=== PATIENT | male | born 1970 | race Caucasian/White ===

== ENCOUNTER 2018-08-22 22:34 | Inpatient (IN) | payer SELFPAY, OTHER | END 2018-08-29 19:10 | disposition home or self-care (01) | LOC: EDH 22:34 → EDHIP 22:35 → 3BH 08-23 02:04 ==

== ENCOUNTER → 2019-05-14 | Outpatient (CLI) | payer OTHER ==
[~2019-05-14] MED LIST: CARV25TA PO; FURO40TA7 PO; LEVO500T2 PO; LISI40TA4 PO; SPIR25TA PO
== END | disposition home or self-care (01) ==
LOC: OIH 09:33
PROVIDERS: ATTEND Family Medicine
DX: M17.11 Unilateral primary osteoarthritis, right knee (principal)
CPT/HCPCS: 73560

== ENCOUNTER 2019-06-20 08:52 | Emergency (ER) | payer OTHER ==
[2019-06-20 09:18] LABS: BASOPHILS % (AUTO) 0.5 % (0.0-5.0); HEMATOCRIT 39.1 % (42-54); LYMPHOCYTES % (AUTO) 19.2 % (21.0-51.0); MEAN CORPUSCULAR HEMOGLOBIN 30.8 pg (27.0-33.0); MEAN CORPUSCULAR VOLUME 87.9 fL (79-99); MONOCYTES % (AUTO) 4.9 % (3.0-13.0); NEUTROPHILS % (AUTO) 72.1 % (40.0-77.0); PLATELET COUNT (AUTO) 203 K/uL (130-400); RED BLOOD CELL COUNT(AUTO) 4.45 MIL/uL (4.50-6.20); WHITE BLOOD COUNT (AUTO) 9.1 K/uL (4.8-10.8)
[2019-06-20] MEDS ORDERED: METHYLPREDNISOLONE SOD SUCC 125MG/2ML VIAL ONE ×3 (09:20→10:26)
[2019-06-20] MEDS ORDERED: ALBUTEROL INHALER 90MCG/INH IH ONE (09:20)
[2019-06-20 09:24] LABS: POTASSIUM 3.7 mmol/L (3.5-5.1)
[2019-06-20 09:29] LABS: INR 0.95 (0.85-1.15); PARTIAL THROMBOPLASTIN TIME 25.5 SEC (26.3-35.5); PROTHROMBIN TIME 10.3 SEC (9.6-11.6)
[2019-06-20 09:31] LABS: ALBUMIN 3.6 g/dL (3.5-5.0); BILIRUBIN,TOTAL 0.5 mg/dL (0.2-1.0); TOTAL PROTEIN, SERUM 6.5 g/dL (6.0-8.3)
[2019-06-20] MEDS ORDERED: ASPIRIN 325 MG TABLET ONE (09:34)
[2019-06-20 09:52] LABS: APPEARANCE,URINE Cloudy (CLEAR); BILIRUBIN,URINE Negative (NEGATIVE); COLOR,URINE Yellow (YELLOW); GLUCOSE, URINE (UA) TRACE mg/dL (NEGATIVE); KETONES,URINE Negative (NEGATIVE); LEUKOCYTE ESTERASE ,URINE Trace (NEGATIVE); NITRATE,URINE Positive (NEGATIVE); OCCULT BLOOD,URINE Negative (NEGATIVE); PH,URINE 5.5 (5.0-8.0); PROTEIN,URINE Trace mg/dL (NEGATIVE)
[2019-06-20 10:04] LABS: RBC,URINE None Seen /HPF (0-1)
[2019-06-20 10:05] LABS: BACTERIA,URINE Many /HPF (None Seen); SQUAMOUS EPITHELIAL CELL,UR 0-2 /HPF (0-2)
== END 2019-06-20 11:21 | disposition home or self-care (01) ==
LOC: EDH 08:52
DX: J45.901 Unspecified asthma with (acute) exacerbation (principal); E11.9 Type 2 diabetes mellitus without complications; E78.5 Hyperlipidemia, unspecified; Z72.0 Tobacco use
CPT/HCPCS: 36415; 71045; 80053; 81001; 82550; 83880; 84484; 85025; 85610; 85730; 87077; 87088; 87186; 87804 ×2; 87880; 93005; 96374; 99285; J2930; 94640

== ENCOUNTER 2020-03-12 19:59 | Inpatient (IN) | payer SELFPAY ==
[~2020-03-12] VITALS: Ht 175.3 cm; Wt 119.7 kg
[2020-03-12] MEDS ORDERED: SODIUM CHLORIDE 0.9% 1000ML 1,000 ML IV ONE (20:21)
[2020-03-12 20:27] LABS: BASOPHILS % (AUTO) 0.9 % (0.0-5.0); EOSINOPHILS % (AUTO) 1.8 % (0.0-8.0); HEMATOCRIT 46.1 % (42-54); LYMPHOCYTES % (AUTO) 27.7 % (21.0-51.0); MEAN CORPUSCULAR HEMOGLOBIN 28.7 pg (27.0-33.0); MEAN CORPUSCULAR HGB CONC 34.9 g/dL (32.0-36.0); MEAN CORPUSCULAR VOLUME 82.2 fL (79-99); MONOCYTES % (AUTO) 6.1 % (3.0-13.0); NEUTROPHILS % (AUTO) 62.7 % (40.0-77.0); PLATELET COUNT (AUTO) 304 K/uL (130-400); RED BLOOD CELL COUNT(AUTO) 5.61 MIL/uL (4.50-6.20)
[2020-03-12 20:29] LABS: ABG BASE EXCESS 2.1 mmol/L (-2.0-3.0); ABG OXYGEN SATURATION 88.2 % (95.0-99.0); ABG PCO2 48 mmHg (35-48)
[2020-03-12 20:56] LABS: CREATININE 1.5 mg/dL (0.5-1.5); POTASSIUM 3.5 mmol/L (3.5-5.1)
[2020-03-12 20:56] LABS: APPEARANCE,URINE Clear (CLEAR); BILIRUBIN,URINE Negative (NEGATIVE); COLOR,URINE Yellow (YELLOW); GLUCOSE, URINE (UA) >=1000 mg/dL (NEGATIVE); KETONES,URINE Negative (NEGATIVE); LEUKOCYTE ESTERASE ,URINE Negative (NEGATIVE); NITRATE,URINE Negative (NEGATIVE); OCCULT BLOOD,URINE Negative (NEGATIVE); PROTEIN,URINE Negative (NEGATIVE); UROBILINOGEN,URINE 0.2 mg/dL (0.2-1.0)
[2020-03-12 20:57] LABS: ALBUMIN 3.8 g/dL (3.5-5.0); BILIRUBIN,TOTAL 0.5 mg/dL (0.2-1.0); TOTAL PROTEIN, SERUM 7.7 g/dL (6.0-8.3)
[2020-03-12 21:04] LABS: INR 0.95 (0.85-1.15); PROTHROMBIN TIME 10.2 SEC (9.6-11.6)
[2020-03-12 21:04] LABS: AMPHET/METH SCREEN,URINE NEGATIVE (NEGATIVE); BARBITURATE SCREEN, URINE NEGATIVE (NEGATIVE); BENZODIAZEPINES SCREEN,URINE NEGATIVE (NEGATIVE); CANNABINOID SCREEN,URINE NEGATIVE (NEGATIVE); COCAINE SCREEN,URINE NEGATIVE (NEGATIVE); OPIATE SCREEN,URINE NEGATIVE (NEGATIVE); PHENCYCLIDINE SCREEN,URINE NEGATIVE (NEGATIVE)
[2020-03-12 21:05] LABS: PARTIAL THROMBOPLASTIN TIME 22.2 SEC (26.3-35.5)
[2020-03-12 21:12] LABS: AMORPHOUS SEDIMENT,UR Moderate /LPF (None Seen); BACTERIA,URINE Few /HPF (None Seen); MUCUS,URINE Few LPF (None Seen); RBC,URINE 0-1 /HPF (0-1); SQUAMOUS EPITHELIAL CELL,UR Few /HPF (0-2); WBC,URINE 0-1 /HPF (0-1)
[2020-03-12 21:29] LABS: CREATINE KINASE, TOTAL 95 U/L (21-232); MYOGLOBIN 57 ng/mL (10-92)
[2020-03-12] MEDS ORDERED: SODIUM CHLORIDE 0.9% 100 ML IV ONE (21:49)
[2020-03-12] MEDS ORDERED: INSULIN HUMULIN R 100 UNIT/ML 3ML ONE ×2 (21:50→21:56)
[2020-03-12] MEDS ORDERED: ONDANSETRON HCL 4 MG/2 ML VIAL IV PRN (22:15)
[2020-03-12] MEDS ORDERED: INSULIN REGULAR, HUMAN 3ML 100 UNIT in SODIUM CHLORIDE 0.9% 99 ML IV PRN ×2 (22:15)
[2020-03-12] MEDS ORDERED: ACETAMINOPHEN 325 MG TAB PO PRN ×2 (22:15)
[2020-03-12] MEDS ORDERED: SODIUM CHLORIDE 0.9% 1000ML 1,000 ML IV SCH (22:15)
[2020-03-12 22:56] LABS: HEMOGLOBIN A1C 11.2 % (4.0-6.0)
[2020-03-12 23:41] LABS: ALBUMIN 3.6 g/dL (3.5-5.0); MAGNESIUM 2.1 mg/dL (1.80-2.40); PHOSPHORUS 3.5 mg/dL (2.5-4.9); THYROID STIMULATING HORMONE 1.95 uIU/mL (0.36-3.74); TROPONIN I 0.23 ng/mL (0.00-0.06)
[2020-03-13] MEDS ORDERED: IPRATROPIUM/ALBUTEROL SULFATE 3 ML SOLUTION IH SCH
[2020-03-13 02:06] LABS: POTASSIUM 2.9 mmol/L (3.5-5.1)
[2020-03-13] MEDS ORDERED: POTASSIUM CHLORIDE 20MEQ/100ML 100 ML IV ONE ×2 (02:16→04:19)
[2020-03-13] MEDS ORDERED: POTASSIUM CHLORIDE 20 MEQ ERTAB PO SCH (06:30)
[2020-03-13 07:17] LABS: CREATININE 0.9 mg/dL (0.5-1.5); POTASSIUM 3.6 mmol/L (3.5-5.1); TROPONIN I 0.24 ng/mL (0.00-0.06)
[2020-03-13] MEDS: INSULIN LISPRO 100 UNIT/ML 3ML SQ SCH ×6 (07:30→21:00)
[2020-03-13] MEDS: INSULIN GLARGINE 100 UNITS/ML 10 ML VIAL SQ SCH ×2 (07:30→20:53)
[2020-03-13] MEDS ORDERED: INSULIN LISPRO 100 UNIT/ML 3ML SQ SCH (07:30)
[2020-03-13] MEDS: NICOTINE 21 MG/ 24 HR PATCH TD SCH (09:00)
[2020-03-13] MEDS: METOPROLOL TARTRATE 25 MG TAB PO SCH ×2 (09:00→20:39)
[2020-03-13] MEDS: ENOXAPARIN SODIUM 40 MG/0.4 ML SYRINGE SQ SCH (09:00)
[2020-03-13] MEDS: FAMOTIDINE/PF 20 MG/2 ML VIAL IV SCH ×2 (09:00→20:38)
[2020-03-13] MEDS: LISINOPRIL 10 MG TABLET PO SCH (09:00)
[2020-03-13] MEDS: ASPIRIN 325 MG TABLET PO SCH (09:00)
[2020-03-13] MEDS ORDERED: ENOXAPARIN SODIUM 40 MG/0.4 ML SYRINGE SQ ONE (09:28)
[2020-03-13] MEDS ORDERED: LISINOPRIL 5 MG TABLET ONE (09:28)
[2020-03-13] MEDS ORDERED: ASPIRIN 325 MG TABLET ONE (09:28)
[2020-03-13] MEDS ORDERED: METOPROLOL TARTRATE 25 MG TAB ONE (09:29)
[2020-03-13] MEDS ORDERED: FAMOTIDINE/PF 20 MG/2 ML VIAL IV ONE (09:30)
[2020-03-13 10:30] VITALS: BP 164/97
[2020-03-13] MEDS ORDERED: LORAZEPAM 2 MG/ML 1 ML VIAL IVP PRN (11:15)
[2020-03-13] MEDS: LACTATED RINGERS 1000ML 1,000 ML IV SCH (12:02)
[2020-03-13 16:01] VITALS: BP 154/95
[2020-03-13 20:00] VITALS: BP 165/80
[2020-03-13] MEDS: ATORVASTATIN CALCIUM 20 MG TABLET PO SCH (20:38)
[2020-03-14] VITALS (9 sets, daily range): BP systolic 149–202; BP diastolic 77–119
[2020-03-14] MEDS: LACTATED RINGERS 1000ML 1,000 ML IV SCH ×3 (00:55→15:35)
[2020-03-14 04:04] LABS: BASOPHILS % (AUTO) 0.6 % (0.0-5.0); EOSINOPHILS % (AUTO) 2.2 % (0.0-8.0); HEMATOCRIT 39.4 % (42-54); LYMPHOCYTES % (AUTO) 21.4 % (21.0-51.0); MEAN CORPUSCULAR HEMOGLOBIN 28.3 pg (27.0-33.0); MEAN CORPUSCULAR HGB CONC 33.8 g/dL (32.0-36.0); MEAN CORPUSCULAR VOLUME 83.8 fL (79-99); MONOCYTES % (AUTO) 5.6 % (3.0-13.0); NEUTROPHILS % (AUTO) 69.6 % (40.0-77.0); PLATELET COUNT (AUTO) 235 K/uL (130-400); RED CELL DISTRIBUTION WIDTH 12.7 % (11.0-15.5); WHITE BLOOD COUNT (AUTO) 11.3 K/uL (4.8-10.8)
[2020-03-14 04:45] LABS: ALBUMIN 2.7 g/dL (3.5-5.0); BILIRUBIN,TOTAL 1.1 mg/dL (0.2-1.0); CREATININE 0.9 mg/dL (0.5-1.5); POTASSIUM 3.4 mmol/L (3.5-5.1); TOTAL PROTEIN, SERUM 5.7 g/dL (6.0-8.3)
[2020-03-14] MEDS: LISINOPRIL 10 MG TABLET PO SCH ×2 (05:42→20:29)
[2020-03-14] MEDS ORDERED: LABETALOL 20 MG/4 ML DISP.SYRIN IV SCH (07:00)
[2020-03-14] MEDS: INSULIN LISPRO 100 UNIT/ML 3ML SQ SCH ×6 (07:10→20:33)
[2020-03-14] MEDS: ASPIRIN 325 MG TABLET PO SCH (09:00)
[2020-03-14] MEDS ORDERED: ASPIRIN 81MG TAB.CHEW ONE (10:47)
[2020-03-14] MEDS: NICOTINE 21 MG/ 24 HR PATCH TD SCH (10:50)
[2020-03-14] MEDS: FAMOTIDINE/PF 20 MG/2 ML VIAL IV SCH ×2 (10:50→20:30)
[2020-03-14] MEDS: METOPROLOL TARTRATE 25 MG TAB PO SCH (10:50)
[2020-03-14] MEDS: ENOXAPARIN SODIUM 40 MG/0.4 ML SYRINGE SQ SCH (10:51)
[2020-03-14] MEDS: ALBUTEROL INHALER 90MCG/INH IH SCH ×2 (12:00→17:03)
[2020-03-14] MEDS: LABETALOL 20 MG/4 ML DISP.SYRIN IV PRN (12:49)
[2020-03-14] MEDS ORDERED: INSULIN LISPRO 100 UNIT/ML 3ML SQ SCH (17:00)
[2020-03-14] MEDS ORDERED: FURO40TA5 PO (17:28)
[2020-03-14] MEDS ORDERED: SPIR25TA6 PO (17:28)
[2020-03-14] MEDS ORDERED: METO50TA18 PO (17:28)
[2020-03-14] MEDS ORDERED: HYDR25TA PO (17:28)
[2020-03-14] MEDS: ATORVASTATIN CALCIUM 20 MG TABLET PO SCH (20:28)
[2020-03-14] MEDS: METOPROLOL TARTRATE 50 MG TAB PO SCH (20:29)
[2020-03-14] MEDS: INSULIN GLARGINE 100 UNITS/ML 10 ML VIAL SQ SCH (20:32)
[2020-03-15] VITALS (7 sets, daily range): BP systolic 129–201; BP diastolic 94–110
[2020-03-15 04:01] LABS: BASOPHILS % (AUTO) 0.5 % (0.0-5.0); EOSINOPHILS % (AUTO) 1.9 % (0.0-8.0); HEMATOCRIT 39.3 % (42-54); LYMPHOCYTES % (AUTO) 15.8 % (21.0-51.0); MEAN CORPUSCULAR HEMOGLOBIN 28.4 pg (27.0-33.0); MEAN CORPUSCULAR HGB CONC 33.6 g/dL (32.0-36.0); MEAN CORPUSCULAR VOLUME 84.7 fL (79-99); MONOCYTES % (AUTO) 5.7 % (3.0-13.0); NEUTROPHILS % (AUTO) 75.6 % (40.0-77.0); PLATELET COUNT (AUTO) 235 K/uL (130-400); RED BLOOD CELL COUNT(AUTO) 4.64 MIL/uL (4.50-6.20); RED CELL DISTRIBUTION WIDTH 12.9 % (11.0-15.5); WHITE BLOOD COUNT (AUTO) 10.2 K/uL (4.8-10.8)
[2020-03-15 04:18] LABS: ALBUMIN 2.9 g/dL (3.5-5.0); BILIRUBIN,TOTAL 0.9 mg/dL (0.2-1.0); CREATININE 0.8 mg/dL (0.5-1.5)
[2020-03-15] MEDS: INSULIN LISPRO 100 UNIT/ML 3ML SQ SCH ×6 (06:04→17:06)
[2020-03-15] MEDS: INSULIN GLARGINE 100 UNITS/ML 10 ML VIAL SQ SCH (06:16)
[2020-03-15] MEDS: LACTATED RINGERS 1000ML 1,000 ML IV SCH (07:01)
[2020-03-15] MEDS ORDERED: POTASSIUM CHLORIDE 20 MEQ ERTAB PO SCH (07:15)
[2020-03-15] MEDS ORDERED: INSULIN GLARGINE 100 UNITS/ML 10 ML VIAL SQ SCH (07:30)
[2020-03-15] MEDS ORDERED: ASPIRIN 81MG TAB.CHEW ONE (07:56)
[2020-03-15] MEDS: NICOTINE 21 MG/ 24 HR PATCH TD SCH (08:02)
[2020-03-15] MEDS: ENOXAPARIN SODIUM 40 MG/0.4 ML SYRINGE SQ SCH (08:03)
[2020-03-15] MEDS: METOPROLOL TARTRATE 50 MG TAB PO SCH (08:04)
[2020-03-15] MEDS: FAMOTIDINE/PF 20 MG/2 ML VIAL IV SCH (08:04)
[2020-03-15] MEDS: LISINOPRIL 10 MG TABLET PO SCH (08:04)
[2020-03-15] MEDS: LABETALOL 20 MG/4 ML DISP.SYRIN IV PRN ×2 (08:26→16:20)
[2020-03-15] MEDS ORDERED: LISI10TA7 PO (08:40)
[2020-03-15] MEDS ORDERED: METO50 PO (08:40)
[2020-03-15] MEDS ORDERED: PIOG45TA4 PO (08:40)
[2020-03-15] MEDS ORDERED: METF-444 PO (08:40)
[2020-03-15] MEDS ORDERED: ATOR20TA65 PO (08:40)
[2020-03-15] MEDS: ASPIRIN 325 MG TABLET PO SCH (11:44)
[2020-03-15] MEDS ORDERED: INSU100I35 SQ ×2 (14:48)
== END 2020-03-15 19:30 | disposition home or self-care (01) | DRG 638 ==
LOC: EDH 19:59 → EDHIP 20:00 → 4CH 03-13 09:24
PROVIDERS: ADMIT Internal Medicine; ATTEND Internal Medicine
DX: E11.00 Type 2 diabetes mellitus with hyperosmolarity without nonketotic hyperglycemic-hyperosmolar coma (NKHHC) (principal); E87.1 Hypo-osmolality and hyponatremia; E87.0 Hyperosmolality and hypernatremia; I69.351 Hemiplegia and hemiparesis following cerebral infarction affecting right dominant side; J44.1 Chronic obstructive pulmonary disease with (acute) exacerbation; E86.1 Hypovolemia; E86.0 Dehydration; G40.909 Epilepsy, unspecified, not intractable, without status epilepticus; I10 Essential (primary) hypertension; E78.5 Hyperlipidemia, unspecified; F17.210 Nicotine dependence, cigarettes, uncomplicated; I25.10 Atherosclerotic heart disease of native coronary artery without angina pectoris; Z20.822 Contact with and (suspected) exposure to COVID-19; I25.2 Old myocardial infarction; Z79.4 Long term (current) use of insulin; Z91.19 Patient's noncompliance with other medical treatment and regimen
CPT/HCPCS: 36415; 36600; 70450; 71045; 80048; 80053; 80061; 80305; 81001; 82010; 82040; 82550; 82803; 82948; 83036; 83605; 83690; 83735; 83874; 83880; 84100; 84145; 84443; 84484; 85025; 85378; 85610; 85730; 86900; 86901; 87040; 87088; 87426; 92610; 93005; 94664; G0378; J1650; J1815; J3480; J3490; J7030; J7120; U0003

== ENCOUNTER 2020-04-04 15:25 | Inpatient (IN) | payer SELFPAY ==
[~2020-04-04] VITALS: Ht 175.3 cm; Wt 119.8 kg
[~2020-04-04 15:25] MED LIST changes: +ATOR20TA65 PO; -CARV25TA PO; +FURO40TA5 PO; -FURO40TA7 PO; +HYDR25TA PO; +INSU100I35 SQ; -LEVO500T2 PO; +LISI10TA24 PO; -LISI40TA4 PO; +METF-444 PO; +METO50 PO; +METO50TA18 PO; +PIOG45TA4 PO; -SPIR25TA PO; +SPIR25TA6 PO
[2020-04-04 16:01] LABS: BASOPHILS % (AUTO) 0.9 % (0.0-5.0); EOSINOPHILS % (AUTO) 2.5 % (0.0-8.0); HEMATOCRIT 42.6 % (42-54); LYMPHOCYTES % (AUTO) 21.7 % (21.0-51.0); MEAN CORPUSCULAR HEMOGLOBIN 28.5 pg (27.0-33.0); MEAN CORPUSCULAR HGB CONC 33.8 g/dL (32.0-36.0); MEAN CORPUSCULAR VOLUME 84.4 fL (79-99); MONOCYTES % (AUTO) 7.4 % (3.0-13.0); NEUTROPHILS % (AUTO) 67.4 % (40.0-77.0); PLATELET COUNT (AUTO) 170 K/uL (130-400); RED BLOOD CELL COUNT(AUTO) 5.05 MIL/uL (4.50-6.20); WHITE BLOOD COUNT (AUTO) 7.9 K/uL (4.8-10.8)
[2020-04-04] MEDS ORDERED: LABETALOL 20MG SYG IV ONE ×2 (16:02→23:02)
[2020-04-04 16:10] LABS: INR 0.99 (0.85-1.15); PROTHROMBIN TIME 10.8 SEC (9.6-11.6)
[2020-04-04 16:14] LABS: PARTIAL THROMBOPLASTIN TIME 20.2 SEC (26.3-35.5)
[2020-04-04 16:18] LABS: ALBUMIN 3.6 g/dL (3.5-5.0); BILIRUBIN,TOTAL 0.8 mg/dL (0.2-1.0); TOTAL PROTEIN, SERUM 7.2 g/dL (6.0-8.3)
[2020-04-04 17:49] LABS: APPEARANCE,URINE Cloudy (CLEAR); BILIRUBIN,URINE Negative (NEGATIVE); COLOR,URINE Yellow (YELLOW); GLUCOSE, URINE (UA) TRACE mg/dL (NEGATIVE); KETONES,URINE Trace mg/dL (NEGATIVE); LEUKOCYTE ESTERASE ,URINE Trace (NEGATIVE); NITRATE,URINE Positive (NEGATIVE); OCCULT BLOOD,URINE Negative (NEGATIVE); PH,URINE 6.5 (5.0-8.0); PROTEIN,URINE POS 1+ mg/dL (NEGATIVE)
[2020-04-04 17:57] LABS: AMPHET/METH SCREEN,URINE NEGATIVE (NEGATIVE); BARBITURATE SCREEN, URINE NEGATIVE (NEGATIVE); BENZODIAZEPINES SCREEN,URINE NEGATIVE (NEGATIVE); CANNABINOID SCREEN,URINE NEGATIVE (NEGATIVE); COCAINE SCREEN,URINE NEGATIVE (NEGATIVE); OPIATE SCREEN,URINE NEGATIVE (NEGATIVE); PHENCYCLIDINE SCREEN,URINE NEGATIVE (NEGATIVE)
[2020-04-04 17:59] LABS: BACTERIA,URINE Many /HPF (None Seen); MUCUS,URINE Few LPF (None Seen); SQUAMOUS EPITHELIAL CELL,UR Few /HPF (0-2)
[2020-04-04] MEDS ORDERED: NICARDIPINE HCL 100MG/ 0.9% NACL 100ML IV SCH (19:15)
[2020-04-04] MEDS ORDERED: ACETAMINOPHEN 650MG ER TAB PO PRN ×2 (19:15)
[2020-04-04] MEDS ORDERED: LABETALOL 20MG SYG IV PRN (19:15)
[2020-04-04] MEDS: ZOSYN 3.375GM+NS 50ML 50 ML IV SCH (19:30)
[2020-04-04] MEDS ORDERED: KCL 20 MEQ ERTAB PO SCH (19:30)
[2020-04-04] MEDS ORDERED: ASPIRIN 81MG CHEW TAB PO SCH (20:30)
[2020-04-04] MEDS ORDERED: CLOPIDOGREL 75MG TAB PO SCH (20:30)
[2020-04-04] MEDS: ATORVASTATIN 20 MG TABLET PO SCH (21:00)
[2020-04-04] MEDS: METOPROLOL TARTRATE 25 MG TAB PO SCH (21:00)
[2020-04-04] MEDS: LISINOPRIL 10 MG TABLET PO SCH (21:00)
[2020-04-04] MEDS ORDERED: ASPIRIN 81MG CHEW TAB ONE (23:00)
[2020-04-04] MEDS ORDERED: POTASSIUM CHLORIDE 10% ELIXIR 20 MEQ/15 ML UDCUP ONE (23:00)
[2020-04-04] MEDS ORDERED: LISINOPRIL 5 MG TABLET ONE (23:01)
[2020-04-04] MEDS ORDERED: ATORVASTATIN 40 MG TABLET ONE (23:01)
[2020-04-04] MEDS ORDERED: CLOPIDOGREL 75MG TAB ONE (23:01)
[2020-04-04] MEDS ORDERED: METOPROLOL TARTRATE 25 MG TAB ONE (23:02)
[2020-04-04] MEDS ORDERED: ZOSYN 3.375GM+NS 50ML 50 ML IV ONE (23:02)
[2020-04-05 06:41] LABS: HEMATOCRIT 38.6 % (42-54); MEAN CORPUSCULAR HEMOGLOBIN 28.6 pg (27.0-33.0); MEAN CORPUSCULAR HGB CONC 33.9 g/dL (32.0-36.0); MEAN CORPUSCULAR VOLUME 84.3 fL (79-99); RED BLOOD CELL COUNT(AUTO) 4.58 MIL/uL (4.50-6.20); RED CELL DISTRIBUTION WIDTH 13.2 % (11.0-15.5); WHITE BLOOD COUNT (AUTO) 8.9 K/uL (4.8-10.8)
[2020-04-05 06:55] LABS: HEMOGLOBIN A1C 11.7 % (4.0-6.0)
[2020-04-05 07:01] LABS: INR 1.07 (0.85-1.15); PROTHROMBIN TIME 11.6 SEC (9.6-11.6)
[2020-04-05 07:13] LABS: ALBUMIN 3.3 g/dL (3.5-5.0); BILIRUBIN,TOTAL 1.4 mg/dL (0.2-1.0); CREATININE 0.8 mg/dL (0.5-1.5); THYROID STIMULATING HORMONE 2.53 uIU/mL (0.36-3.74); TOTAL PROTEIN, SERUM 6.5 g/dL (6.0-8.3); TROPONIN I 0.04 ng/mL (0.00-0.06)
[2020-04-05 07:14] LABS: POTASSIUM 2.5 mmol/L (3.5-5.1)
[2020-04-05] MEDS ORDERED: GADODIAMIDE 10 MMOL/20 ML VIAL IV ONE (08:08)
[2020-04-05] MEDS: METOPROLOL TARTRATE 25 MG TAB PO SCH ×2 (09:00→20:47)
[2020-04-05] MEDS: LISINOPRIL 10 MG TABLET PO SCH ×2 (09:00→20:46)
[2020-04-05] MEDS: ASPIRIN 81MG CHEW TAB PO SCH (09:00)
[2020-04-05] MEDS: CLOPIDOGREL 75MG TAB PO SCH (09:00)
[2020-04-05] MEDS: FAMOTIDINE 20MG VIAL IV SCH ×2 (09:00→20:47)
[2020-04-05] MEDS ORDERED: FAMOTIDINE 20MG VIAL IV ONE (09:33)
[2020-04-05] MEDS: ZOSYN 3.375GM+NS 50ML 50 ML IV SCH ×2 (11:30→20:47)
[2020-04-05] MEDS ORDERED: ASPIRIN 81MG CHEW TAB ONE (11:52)
[2020-04-05] MEDS ORDERED: CLOPIDOGREL 75MG TAB ONE (11:52)
[2020-04-05] MEDS ORDERED: METOPROLOL TARTRATE 25 MG TAB ONE (11:53)
[2020-04-05] MEDS ORDERED: ZOSYN 3.375GM+NS 50ML 50 ML IV ONE (11:53)
[2020-04-05] MEDS ORDERED: POTASSIUM CHLORIDE 10% ELIXIR 20 MEQ/15 ML UDCUP ONE (13:28)
[2020-04-05] MEDS ORDERED: INSULIN HUMULIN R 100 UNIT/ML 3ML ONE (13:29)
[2020-04-05 17:52] VITALS: BP 185/116
[2020-04-05] MEDS: INSULIN HUMULIN R 100 UNIT/ML 3ML SQ SCH ×3 (18:00→20:53)
[2020-04-05] MEDS: NICARDIPINE 25MG INJ 50 MG in 0.9% NACL 250ML 230 ML IV SCH (18:30)
[2020-04-05] MEDS: LIDOCAINE HCL-MPF 1% 2ML VIAL IV PRN (18:30)
[2020-04-05 20:21] VITALS: BP 164/88
[2020-04-05] MEDS: ATORVASTATIN 20 MG TABLET PO SCH (20:46)
[2020-04-06 00:20] VITALS: BP 168/96
[2020-04-06] MEDS: ZOSYN 3.375GM+NS 50ML 50 ML IV SCH ×3 (04:30→20:58)
[2020-04-06 05:30] VITALS: BP 176/88
[2020-04-06] MEDS: INSULIN HUMULIN R 100 UNIT/ML 3ML SQ SCH ×3 (06:00→18:51)
[2020-04-06 06:26] LABS: ALBUMIN 3.4 g/dL (3.5-5.0); BILIRUBIN,TOTAL 1.3 mg/dL (0.2-1.0); CREATININE 0.9 mg/dL (0.5-1.5); TOTAL PROTEIN, SERUM 6.7 g/dL (6.0-8.3)
[2020-04-06 06:32] LABS: POTASSIUM 2.9 mmol/L (3.5-5.1)
[2020-04-06] MEDS: KCL 20 MEQ ERTAB PO PRN ×2 (06:43→08:19)
[2020-04-06 06:45] LABS: BASOPHILS % (AUTO) 0.8 % (0.0-5.0); EOSINOPHILS % (AUTO) 3.8 % (0.0-8.0); HEMATOCRIT 38.7 % (42-54); LYMPHOCYTES % (AUTO) 28.7 % (21.0-51.0); MEAN CORPUSCULAR HGB CONC 34.1 g/dL (32.0-36.0); MEAN CORPUSCULAR VOLUME 85.1 fL (79-99); MONOCYTES % (AUTO) 7.8 % (3.0-13.0); NEUTROPHILS % (AUTO) 58.8 % (40.0-77.0); PLATELET COUNT (AUTO) 213 K/uL (130-400); RED BLOOD CELL COUNT(AUTO) 4.55 MIL/uL (4.50-6.20); RED CELL DISTRIBUTION WIDTH 13.2 % (11.0-15.5); WHITE BLOOD COUNT (AUTO) 7.9 K/uL (4.8-10.8)
[2020-04-06 08:00] VITALS: BP 204/93
[2020-04-06] MEDS: FAMOTIDINE 20MG VIAL IV SCH ×2 (08:18→20:58)
[2020-04-06] MEDS: ASPIRIN 81MG CHEW TAB PO SCH (08:19)
[2020-04-06] MEDS: LISINOPRIL 10 MG TABLET PO SCH ×2 (08:19→20:58)
[2020-04-06] MEDS: CLOPIDOGREL 75MG TAB PO SCH (08:20)
[2020-04-06] MEDS: METOPROLOL TARTRATE 25 MG TAB PO SCH ×2 (08:20→20:58)
[2020-04-06 14:02] VITALS: BP_SYST 130; BP_SYST 185; BP_DIAS 66; BP_DIAS 85
[2020-04-06 18:28] VITALS: BP 187/105
[2020-04-06 20:15] VITALS: BP 184/93
[2020-04-06] MEDS: ATORVASTATIN 20 MG TABLET PO SCH (20:58)
[2020-04-06 22:10] LABS: EOSINOPHILS % (AUTO) 3.7 % (0.0-8.0); HEMATOCRIT 40.4 % (42-54); MEAN CORPUSCULAR HEMOGLOBIN 28.7 pg (27.0-33.0); MEAN CORPUSCULAR HGB CONC 33.4 g/dL (32.0-36.0); MONOCYTES % (AUTO) 7.7 % (3.0-13.0); NEUTROPHILS % (AUTO) 59.2 % (40.0-77.0); PLATELET COUNT (AUTO) 231 K/uL (130-400); RED CELL DISTRIBUTION WIDTH 13.2 % (11.0-15.5); WHITE BLOOD COUNT (AUTO) 8.1 K/uL (4.8-10.8)
[2020-04-07] VITALS (14 sets, daily range): BP systolic 125–187; BP diastolic 75–119
[2020-04-07] MEDS ORDERED: LABETALOL 20MG VIAL IV PRN (04:45)
[2020-04-07] MEDS: ZOSYN 3.375GM+NS 50ML 50 ML IV SCH ×3 (04:50→21:11)
[2020-04-07 05:21] LABS: BASOPHILS % (AUTO) 0.7 % (0.0-5.0); MEAN CORPUSCULAR HEMOGLOBIN 28.7 pg (27.0-33.0); MEAN CORPUSCULAR HGB CONC 33.7 g/dL (32.0-36.0); MEAN CORPUSCULAR VOLUME 85.2 fL (79-99); MONOCYTES % (AUTO) 8.1 % (3.0-13.0); NEUTROPHILS % (AUTO) 59.1 % (40.0-77.0); PLATELET COUNT (AUTO) 204 K/uL (130-400); RED BLOOD CELL COUNT(AUTO) 4.46 MIL/uL (4.50-6.20); RED CELL DISTRIBUTION WIDTH 13.1 % (11.0-15.5); WHITE BLOOD COUNT (AUTO) 7.1 K/uL (4.8-10.8)
[2020-04-07 05:45] LABS: ALBUMIN 3.2 g/dL (3.5-5.0); BILIRUBIN,TOTAL 1.2 mg/dL (0.2-1.0); CREATININE 0.9 mg/dL (0.5-1.5); TOTAL PROTEIN, SERUM 6.4 g/dL (6.0-8.3)
[2020-04-07 05:52] LABS: POTASSIUM 2.8 mmol/L (3.5-5.1)
[2020-04-07] MEDS: INSULIN HUMULIN R 100 UNIT/ML 3ML SQ SCH ×5 (05:58→21:23)
[2020-04-07] MEDS: POTASSIUM CHLORIDE 20MEQ/100ML 100 ML IV PRN ×2 (06:09→11:00)
[2020-04-07] MEDS: LIDOCAINE HCL-MPF 1% 2ML VIAL IV PRN (06:10)
[2020-04-07] MEDS ORDERED: LIDOCAINE HCL 2% VISCOUS 15 ML UDCUP ONE (06:59)
[2020-04-07] MEDS: ASPIRIN 81MG CHEW TAB PO SCH (09:00)
[2020-04-07] MEDS ORDERED: FENTANYL CITRATE PF 50 MCG/1 ML 2ML VIAL ONE (11:18)
[2020-04-07] MEDS ORDERED: MIDAZOLAM HCL 1 MG/ML 2ML VIAL ONE (11:18)
[2020-04-07] MEDS: FAMOTIDINE 20MG VIAL IV SCH ×2 (13:23→21:10)
[2020-04-07] MEDS: CLOPIDOGREL 75MG TAB PO SCH (13:24)
[2020-04-07] MEDS: LISINOPRIL 10 MG TABLET PO SCH ×2 (13:24→21:09)
[2020-04-07] MEDS: KCL 20 MEQ ERTAB PO PRN (13:26)
[2020-04-07] MEDS: METOPROLOL TARTRATE 25 MG TAB PO SCH ×2 (13:26→21:10)
[2020-04-07] MEDS: ATORVASTATIN 20 MG TABLET PO SCH (22:17)
[2020-04-07] MEDS ORDERED: GABA600T10 PO (22:51)
[2020-04-07] MEDS ORDERED: GLIP10TA9 PO (22:51)
[2020-04-07] MEDS ORDERED: FENO160T16 PO (22:51)
[2020-04-07] MEDS ORDERED: SIMV40TA59 PO (22:51)
[2020-04-07] MEDS ORDERED: METO10TA3 PO (22:51)
[2020-04-07] MEDS ORDERED: LEVO112T7 PO (22:51)
[2020-04-07] MEDS ORDERED: FOLI1TAB85 PO (22:51)
[2020-04-07] MEDS ORDERED: OMEP40CA21 PO (22:51)
[2020-04-07] MEDS ORDERED: CELE-84 PO (22:51)
[2020-04-07] MEDS ORDERED: OLME40TA8 PO (22:51)
[2020-04-07] MEDS ORDERED: NIFE90TA45 PO (22:51)
[2020-04-07] MEDS ORDERED: METF-446 PO (22:51)
[2020-04-07] MEDS ORDERED: NITR0.4T50 SL (22:51)
[2020-04-07] MEDS ORDERED: SPIR25TA6 PO (22:53)
[2020-04-08] VITALS (13 sets, daily range): BP systolic 166–209; BP diastolic 76–133
[2020-04-08] MEDS: POTASSIUM CHLORIDE 10% ELIXIR 20 MEQ/15 ML UDCUP PO PRN ×2 (01:54→05:30)
[2020-04-08] MEDS: LABETALOL 20MG SYG IV PRN ×3 (03:36→16:49)
[2020-04-08 04:02] LABS: BASOPHILS % (AUTO) 0.6 % (0.0-5.0); EOSINOPHILS % (AUTO) 4.4 % (0.0-8.0); HEMATOCRIT 36.8 % (42-54); LYMPHOCYTES % (AUTO) 28.4 % (21.0-51.0); MEAN CORPUSCULAR HEMOGLOBIN 29.2 pg (27.0-33.0); MONOCYTES % (AUTO) 7.7 % (3.0-13.0); NEUTROPHILS % (AUTO) 58.6 % (40.0-77.0); PLATELET COUNT (AUTO) 187 K/uL (130-400); RED BLOOD CELL COUNT(AUTO) 4.28 MIL/uL (4.50-6.20); RED CELL DISTRIBUTION WIDTH 13.2 % (11.0-15.5); WHITE BLOOD COUNT (AUTO) 7.1 K/uL (4.8-10.8)
[2020-04-08 04:28] LABS: ALBUMIN 3.2 g/dL (3.5-5.0); BILIRUBIN,TOTAL 1.1 mg/dL (0.2-1.0); CREATININE 0.9 mg/dL (0.5-1.5); POTASSIUM 3.1 mmol/L (3.5-5.1); TOTAL PROTEIN, SERUM 6.3 g/dL (6.0-8.3)
[2020-04-08] MEDS: ZOSYN 3.375GM+NS 50ML 50 ML IV SCH ×3 (05:30→19:51)
[2020-04-08] MEDS: INSULIN HUMULIN R 100 UNIT/ML 3ML SQ SCH ×3 (06:00→16:40)
[2020-04-08] MEDS: KCL 20 MEQ ERTAB PO PRN ×2 (08:42→14:57)
[2020-04-08] MEDS: LISINOPRIL 40 MG TABLET PO SCH ×2 (08:42→19:51)
[2020-04-08] MEDS: METOPROLOL TARTRATE 25 MG TAB PO SCH ×2 (08:42→19:51)
[2020-04-08] MEDS: FAMOTIDINE 20MG VIAL IV SCH ×2 (08:43→19:51)
[2020-04-08] MEDS: APIXABAN 5 MG TABLET PO SCH ×2 (08:48→19:50)
[2020-04-08] MEDS: NICARDIPINE 25MG INJ 50 MG in 0.9% NACL 250ML 230 ML IV SCH (17:46)
[2020-04-08] MEDS ORDERED: ATORVASTATIN 40 MG TABLET ONE (19:44)
[2020-04-08] MEDS: AMLODIPINE 5 MG TAB PO SCH (19:51)
[2020-04-08] MEDS: ATORVASTATIN 20 MG TABLET PO SCH (21:00)
[2020-04-09] VITALS (26 sets, daily range): BP systolic 111–180; BP diastolic 32–110
[2020-04-09] MEDS ORDERED: NICARDIPINE 25MG INJ IV ONE (03:46)
[2020-04-09] MEDS: ZOSYN 3.375GM+NS 50ML 50 ML IV SCH ×3 (05:29→21:27)
[2020-04-09] MEDS: INSULIN HUMULIN R 100 UNIT/ML 3ML SQ SCH ×4 (05:54→17:15)
[2020-04-09 06:06] LABS: BASOPHILS % (AUTO) 0.6 % (0.0-5.0); EOSINOPHILS % (AUTO) 5.1 % (0.0-8.0); LYMPHOCYTES % (AUTO) 25.1 % (21.0-51.0); MEAN CORPUSCULAR HEMOGLOBIN 28.6 pg (27.0-33.0); MEAN CORPUSCULAR HGB CONC 33.7 g/dL (32.0-36.0); MEAN CORPUSCULAR VOLUME 84.8 fL (79-99); MONOCYTES % (AUTO) 7.2 % (3.0-13.0); NEUTROPHILS % (AUTO) 61.6 % (40.0-77.0); PLATELET COUNT (AUTO) 209 K/uL (130-400); RED BLOOD CELL COUNT(AUTO) 4.48 MIL/uL (4.50-6.20); RED CELL DISTRIBUTION WIDTH 13.1 % (11.0-15.5); WHITE BLOOD COUNT (AUTO) 8.1 K/uL (4.8-10.8)
[2020-04-09 06:21] LABS: ALBUMIN 3.3 g/dL (3.5-5.0); BILIRUBIN,TOTAL 1.3 mg/dL (0.2-1.0); CREATININE 0.8 mg/dL (0.5-1.5); TOTAL PROTEIN, SERUM 6.5 g/dL (6.0-8.3)
[2020-04-09 06:27] LABS: POTASSIUM 2.8 mmol/L (3.5-5.1)
[2020-04-09] MEDS: KCL 20 MEQ ERTAB PO PRN ×2 (06:32→17:17)
[2020-04-09] MEDS: METOPROLOL TARTRATE 25 MG TAB PO SCH ×2 (08:52→21:30)
[2020-04-09] MEDS: APIXABAN 5 MG TABLET PO SCH ×2 (08:52→21:31)
[2020-04-09] MEDS: FAMOTIDINE 20MG VIAL IV SCH ×2 (08:52→21:27)
[2020-04-09] MEDS: LISINOPRIL 40 MG TABLET PO SCH ×2 (08:52→21:29)
[2020-04-09] MEDS: AMLODIPINE 5 MG TAB PO SCH ×2 (08:53→21:30)
[2020-04-09] MEDS ORDERED: KCL 20 MEQ ERTAB PO SCH (09:15)
[2020-04-09] MEDS: NICARDIPINE 25MG INJ 50 MG in 0.9% NACL 250ML 230 ML IV SCH (09:25)
[2020-04-09] MEDS: MAGNESIUM 2GM PREMIX 50ML 50 ML IV SCH (17:18)
[2020-04-09] MEDS: ATORVASTATIN 40 MG TABLET PO SCH (21:31)
[2020-04-10] VITALS (23 sets, daily range): BP systolic 138–183; BP diastolic 61–110
[2020-04-10 05:12] LABS: CREATININE 0.8 mg/dL (0.5-1.5)
[2020-04-10] MEDS: INSULIN HUMULIN R 100 UNIT/ML 3ML SQ SCH ×5 (06:00→21:00)
[2020-04-10] MEDS: KCL 20 MEQ ERTAB PO PRN ×3 (06:28→16:59)
[2020-04-10] MEDS: ZOSYN 3.375GM+NS 50ML 50 ML IV SCH ×3 (06:28→21:47)
[2020-04-10] MEDS: POTASSIUM CHLORIDE 20MEQ/100ML 100 ML IV PRN (07:42)
[2020-04-10] MEDS: LISINOPRIL 40 MG TABLET PO SCH ×2 (09:57→21:47)
[2020-04-10] MEDS: FAMOTIDINE 20MG VIAL IV SCH ×2 (09:57→21:46)
[2020-04-10] MEDS: METOPROLOL TARTRATE 25 MG TAB PO SCH ×2 (09:57→21:46)
[2020-04-10] MEDS: APIXABAN 5 MG TABLET PO SCH ×2 (09:57→21:46)
[2020-04-10] MEDS: AMLODIPINE 5 MG TAB PO SCH ×2 (09:57→21:46)
[2020-04-10 16:42] LABS: CHLORIDE,URINE RANDOM 88 mmol/L (110-250); CREATININE,URINE RANDOM 266 mg/dL (30-135); POTASSIUM,URINE RANDOM 120 mmol/L (25-125); SODIUM,URINE RANDOM 29 mmol/l (40-220)
[2020-04-10] MEDS ORDERED: SPIRONOLACTONE 25 MG TAB PO SCH (17:00)
[2020-04-10] MEDS: ATORVASTATIN 40 MG TABLET PO SCH (21:46)
[2020-04-11] VITALS (22 sets, daily range): BP systolic 138–178; BP diastolic 59–100
[2020-04-11] MEDS: ZOSYN 3.375GM+NS 50ML 50 ML IV SCH ×3 (04:03→20:16)
[2020-04-11 05:21] LABS: ALBUMIN 3.3 g/dL (3.5-5.0); BILIRUBIN,TOTAL 1.4 mg/dL (0.2-1.0); CREATININE 0.9 mg/dL (0.5-1.5); MAGNESIUM 1.8 mg/dL (1.80-2.40); TOTAL PROTEIN, SERUM 6.4 g/dL (6.0-8.3)
[2020-04-11] MEDS: MAGNESIUM 2GM PREMIX 50ML 50 ML IV SCH (06:17)
[2020-04-11] MEDS: KCL 20 MEQ ERTAB PO PRN ×2 (06:17→06:18)
[2020-04-11 06:28] LABS: BASOPHILS % (AUTO) 0.9 % (0.0-5.0); EOSINOPHILS % (AUTO) 4.3 % (0.0-8.0); HEMATOCRIT 37.4 % (42-54); LYMPHOCYTES % (AUTO) 30.8 % (21.0-51.0); MEAN CORPUSCULAR HGB CONC 33.7 g/dL (32.0-36.0); MEAN CORPUSCULAR VOLUME 86.2 fL (79-99); MONOCYTES % (AUTO) 7.9 % (3.0-13.0); NEUTROPHILS % (AUTO) 55.8 % (40.0-77.0); PLATELET COUNT (AUTO) 198 K/uL (130-400); RED BLOOD CELL COUNT(AUTO) 4.34 MIL/uL (4.50-6.20); RED CELL DISTRIBUTION WIDTH 13.2 % (11.0-15.5); WHITE BLOOD COUNT (AUTO) 7.4 K/uL (4.8-10.8)
[2020-04-11] MEDS: INSULIN HUMULIN R 100 UNIT/ML 3ML SQ SCH ×4 (07:30→20:28)
[2020-04-11] MEDS: METOPROLOL TARTRATE 25 MG TAB PO SCH ×2 (08:29→20:15)
[2020-04-11] MEDS: LISINOPRIL 40 MG TABLET PO SCH ×2 (08:30→20:16)
[2020-04-11] MEDS: SPIRONOLACTONE 25 MG TAB PO SCH (08:30)
[2020-04-11] MEDS: AMLODIPINE 5 MG TAB PO SCH ×2 (08:30→20:14)
[2020-04-11] MEDS: APIXABAN 5 MG TABLET PO SCH ×2 (08:30→20:15)
[2020-04-11] MEDS: FAMOTIDINE 20MG VIAL IV SCH ×2 (08:31→20:14)
[2020-04-11] MEDS ORDERED: HYDRALAZINE 25MG TABLET PO SCH (09:00)
[2020-04-11] MEDS: POTASSIUM CHLORIDE 20MEQ/100ML 100 ML IV PRN (11:24)
[2020-04-11 16:00] LABS: CREATININE 0.9 mg/dL (0.5-1.5); POTASSIUM 3.9 mmol/L (3.5-5.1)
[2020-04-11] MEDS: HYDRALAZINE 25MG TABLET PO SCH (20:14)
[2020-04-11] MEDS: ATORVASTATIN 40 MG TABLET PO SCH (20:15)
[2020-04-12] VITALS (13 sets, daily range): BP systolic 134–185; BP diastolic 74–98
[2020-04-12] MEDS: LABETALOL 20MG SYG IV PRN (00:53)
[2020-04-12 03:30] LABS: BASOPHILS % (AUTO) 0.5 % (0.0-5.0); EOSINOPHILS % (AUTO) 3.8 % (0.0-8.0); HEMATOCRIT 38.1 % (42-54); LYMPHOCYTES % (AUTO) 29.4 % (21.0-51.0); MEAN CORPUSCULAR HEMOGLOBIN 29.1 pg (27.0-33.0); MEAN CORPUSCULAR HGB CONC 34.1 g/dL (32.0-36.0); MEAN CORPUSCULAR VOLUME 85.2 fL (79-99); MONOCYTES % (AUTO) 7.2 % (3.0-13.0); NEUTROPHILS % (AUTO) 58.8 % (40.0-77.0); PLATELET COUNT (AUTO) 188 K/uL (130-400); RED BLOOD CELL COUNT(AUTO) 4.47 MIL/uL (4.50-6.20); RED CELL DISTRIBUTION WIDTH 13.2 % (11.0-15.5); WHITE BLOOD COUNT (AUTO) 7.4 K/uL (4.8-10.8)
[2020-04-12 03:40] LABS: CREATININE 0.9 mg/dL (0.5-1.5); MAGNESIUM 1.8 mg/dL (1.80-2.40); POTASSIUM 3.1 mmol/L (3.5-5.1)
[2020-04-12] MEDS: KCL 20 MEQ ERTAB PO PRN ×2 (03:54→06:25)
[2020-04-12] MEDS: MAGNESIUM 2GM PREMIX 50ML 50 ML IV SCH (03:54)
[2020-04-12] MEDS: ZOSYN 3.375GM+NS 50ML 50 ML IV SCH ×3 (05:00→21:48)
[2020-04-12] MEDS: INSULIN HUMULIN R 100 UNIT/ML 3ML SQ SCH ×4 (05:30→21:50)
[2020-04-12] MEDS: APIXABAN 5 MG TABLET PO SCH ×2 (07:43→21:47)
[2020-04-12] MEDS: AMLODIPINE 5 MG TAB PO SCH ×2 (07:43→21:46)
[2020-04-12] MEDS: HYDRALAZINE 25MG TABLET PO SCH ×2 (07:43→21:46)
[2020-04-12] MEDS: SPIRONOLACTONE 25 MG TAB PO SCH (07:43)
[2020-04-12] MEDS: LISINOPRIL 40 MG TABLET PO SCH ×2 (07:44→21:47)
[2020-04-12] MEDS: METOPROLOL TARTRATE 25 MG TAB PO SCH ×2 (07:44→21:46)
[2020-04-12] MEDS: FAMOTIDINE 20MG VIAL IV SCH ×2 (07:44→21:47)
[2020-04-12] MEDS: POTASSIUM CHLORIDE 20MEQ/100ML 100 ML IV PRN (08:37)
[2020-04-12] MEDS: ATORVASTATIN 40 MG TABLET PO SCH (21:47)
[2020-04-13 00:14] VITALS: BP 154/66
[2020-04-13 04:06] VITALS: BP 156/84
[2020-04-13 05:27] LABS: MEAN CORPUSCULAR HEMOGLOBIN 28.8 pg (27.0-33.0); MEAN CORPUSCULAR HGB CONC 33.8 g/dL (32.0-36.0); MEAN CORPUSCULAR VOLUME 85.3 fL (79-99); PLATELET COUNT (AUTO) 206 K/uL (130-400); RED BLOOD CELL COUNT(AUTO) 4.69 MIL/uL (4.50-6.20); RED CELL DISTRIBUTION WIDTH 13.1 % (11.0-15.5)
[2020-04-13 05:37] LABS: CREATININE 0.7 mg/dL (0.5-1.5); MAGNESIUM 1.8 mg/dL (1.80-2.40); POTASSIUM 3.2 mmol/L (3.5-5.1)
[2020-04-13 05:38] LABS: BASOPHILS % (MANUAL) 3 % (0-2); EOSINOPHILS % (MANUAL) 4 % (1-6); LYMPHOCYTES % (MANUAL) 23 % (22-44); MAN.DIFF COMMENT-IMPRESSION MANUAL DIFFERENTIAL; MONOCYTES % (MANUAL) 7 % (2-9); SEGMENTED NEUTROPHILS % 63 % (40-70)
[2020-04-13] MEDS: INSULIN HUMULIN R 100 UNIT/ML 3ML SQ SCH ×3 (06:13→15:50)
[2020-04-13] MEDS: ZOSYN 3.375GM+NS 50ML 50 ML IV SCH ×2 (06:13→13:05)
[2020-04-13 08:09] VITALS: BP 163/92
[2020-04-13] MEDS: APIXABAN 5 MG TABLET PO SCH (08:22)
[2020-04-13] MEDS: AMLODIPINE 5 MG TAB PO SCH (08:22)
[2020-04-13] MEDS: HYDRALAZINE 25MG TABLET PO SCH (08:22)
[2020-04-13] MEDS: KCL 20 MEQ ERTAB PO PRN (08:23)
[2020-04-13] MEDS: LISINOPRIL 40 MG TABLET PO SCH (08:23)
[2020-04-13] MEDS: METOPROLOL TARTRATE 25 MG TAB PO SCH (08:23)
[2020-04-13] MEDS: FAMOTIDINE 20MG VIAL IV SCH (08:23)
[2020-04-13] MEDS ORDERED: SPIRONOLACTONE 25 MG TAB PO SCH (09:00)
[2020-04-13 12:10] VITALS: BP 148/81
[2020-04-13] MEDS ORDERED: ATOR40TA69 PO (13:29)
[2020-04-13] MEDS ORDERED: AMLO-257 PO (13:35)
[2020-04-13] MEDS ORDERED: SPIR50TA5 PO (13:35)
[2020-04-13] MEDS ORDERED: LISI40TA9 PO (13:35)
[2020-04-13] MEDS ORDERED: APIX5TAB PO (13:35)
[2020-04-13 16:27] VITALS: BP 171/89
== END 2020-04-13 17:38 | disposition home or self-care (01) | DRG 65 ==
LOC: EDH 15:25 → EDHIP 15:26 → 4CH 04-05 16:04 → 2DH 04-09 01:31 → 4BH 04-12 12:47
PROVIDERS: ADMIT Internal Medicine; ATTEND Internal Medicine
PROC: B246ZZ4 Ultrasonography of Right and Left Heart, Transesophageal (ICD-10-PCS; principal; 2020-04-07)
DX: I63.40 Cerebral infarction due to embolism of unspecified cerebral artery (principal); I16.1 Hypertensive emergency; N39.0 Urinary tract infection, site not specified; I42.0 Dilated cardiomyopathy; I50.42 Chronic combined systolic (congestive) and diastolic (congestive) heart failure; I69.351 Hemiplegia and hemiparesis following cerebral infarction affecting right dominant side; E87.1 Hypo-osmolality and hyponatremia; J44.9 Chronic obstructive pulmonary disease, unspecified; E87.6 Hypokalemia; I11.0 Hypertensive heart disease with heart failure; I25.10 Atherosclerotic heart disease of native coronary artery without angina pectoris; I45.10 Unspecified right bundle-branch block; E78.5 Hyperlipidemia, unspecified; E11.9 Type 2 diabetes mellitus without complications; F17.210 Nicotine dependence, cigarettes, uncomplicated; E66.9 Obesity, unspecified; E87.5 Hyperkalemia; Z20.822 Contact with and (suspected) exposure to COVID-19; I34.0 Nonrheumatic mitral (valve) insufficiency; Z68.39 Body mass index [BMI] 39.0-39.9, adult; Z79.899 Other long term (current) drug therapy; I25.2 Old myocardial infarction; Z91.14 Patient's other noncompliance with medication regimen; Z83.3 Family history of diabetes mellitus; Z82.49 Family history of ischemic heart disease and other diseases of the circulatory system
CPT/HCPCS: 36415; 70450; 70544; 70547; 70551; 71045; 76770; 80048; 80051; 80053; 80061; 80305; 81001; 82088; 82550; 82570; 82948; 83036; 83721; 83735; 83874; 83935; 84105; 84132; 84145; 84244; 84443; 84484; 85025; 85027; 85610; 85730; 87077; 87088; 87186; 87426; 92507; 92522; 92610; 93005; 93306; 93313; 93356; 93880; 97039; A9579; G0378; J1815; J2250; J2543; J3010; J3475; J3480; J3490; J7050; U0003

== ENCOUNTER 2020-07-05 20:31 | Emergency (ER) | payer OTHER ==
[~2020-07-05 20:31] MED LIST changes: +AMLO-257 PO; +APIX5TAB PO; -ATOR20TA65 PO; +ATOR40TA69 PO; -LISI10TA24 PO; +LISI40TA9 PO; -METF-444 PO; -SPIR25TA6 PO; +SPIR50TA5 PO
[2020-07-05 22:40] LABS: BASOPHILS % (AUTO) 0.8 % (0.0-5.0); EOSINOPHILS % (AUTO) 2.2 % (0.0-8.0); HEMATOCRIT 40.8 % (42-54); LYMPHOCYTES % (AUTO) 34.4 % (21.0-51.0); MEAN CORPUSCULAR HEMOGLOBIN 29.8 pg (27.0-33.0); MEAN CORPUSCULAR HGB CONC 35.3 g/dL (32.0-36.0); MEAN CORPUSCULAR VOLUME 84.5 fL (79-99); MONOCYTES % (AUTO) 6.1 % (3.0-13.0); NEUTROPHILS % (AUTO) 56.4 % (40.0-77.0); PLATELET COUNT (AUTO) 191 K/uL (130-400); RED BLOOD CELL COUNT(AUTO) 4.83 MIL/uL (4.50-6.20); RED CELL DISTRIBUTION WIDTH 12.6 % (11.0-15.5); WHITE BLOOD COUNT (AUTO) 7.8 K/uL (4.8-10.8)
[2020-07-05 22:56] LABS: CREATININE 1.2 mg/dL (0.5-1.5); POTASSIUM 3.7 mmol/L (3.5-5.1)
[2020-07-05 23:00] LABS: ALBUMIN 3.8 g/dL (3.5-5.0)
[2020-07-05 23:34] LABS: CRP QUANTITATIVE 10.1 mg/L (0.00-9.0); MAGNESIUM 1.8 mg/dL (1.80-2.40)
[2020-07-05] MEDS ORDERED: IOHEXOL 350 MG/ML 100ML INFUS..BTL IV ONE (23:47)
[2020-07-06 00:12] LABS: APPEARANCE,URINE Clear (CLEAR); BILIRUBIN,URINE Negative (NEGATIVE); COLOR,URINE Yellow (YELLOW); GLUCOSE, URINE (UA) >=1000 mg/dL (NEGATIVE); KETONES,URINE Negative (NEGATIVE); LEUKOCYTE ESTERASE ,URINE Trace (NEGATIVE); NITRATE,URINE Negative (NEGATIVE); OCCULT BLOOD,URINE Negative (NEGATIVE); PROTEIN,URINE Negative (NEGATIVE)
[2020-07-06 00:33] LABS: RBC,URINE 0-1 /HPF (0-1)
[2020-07-06 00:34] LABS: BACTERIA,URINE Few /HPF (None Seen)
[2020-07-06] MEDS ORDERED: MAGNESIUM CITRATE 296 ML SOLUTION ONE (02:03)
== END 2020-07-06 02:33 | disposition home or self-care (01) ==
LOC: EDH 20:31
DX: K42.9 Umbilical hernia without obstruction or gangrene (principal); K59.00 Constipation, unspecified; E66.01 Morbid (severe) obesity due to excess calories; E11.9 Type 2 diabetes mellitus without complications; J44.9 Chronic obstructive pulmonary disease, unspecified; Z72.0 Tobacco use; I25.2 Old myocardial infarction
CPT/HCPCS: 36415; 74177; 80053; 81001; 82150; 83690; 83735; 85025; 86140; 87077; 87088; 87186; 99285; Q9967